=== PATIENT | female | born 1965 | race African-American/Black ===

== ENCOUNTER 2016-10-03 20:42 | Inpatient (IN) | payer MEDICAID ==
[~2016-10-03] VITALS: Ht 170.2 cm; Wt 49.0 kg
[~2016-10-03 20:42] MED LIST: ACET1TAB12 PO; ALBU6.7H IH; FLUT1DIS3 INH; LEVO500T15 PO; METH4TAB17 PO
[2016-10-03] MEDS ORDERED: PREDNISONE 20MG TABLET PO STA (22:35)
[2016-10-03] MEDS ORDERED: ALBUTEROL (0.083%) 2.5MG/3ML NEB HHN STA (22:35)
[2016-10-03] MEDS ORDERED: IPRATROPIUM BROMIDE (0.02%) 0.5MG/2.5ML NEB HHN STA (22:35)
[2016-10-03 23:14] LABS: BASOPHILS % 0.9 % (0.0-2.0); EOSINOPHILS % 5.7 % (0.0-5.0); HEMATOCRIT. 40.8 % (36.0-48.0); HEMOGLOBIN. 13.5 g/dL (12.0-16.0); LYMPHOCYTES % 31.6 % (20.0-50.0); MEAN CORPUSCULAR HEMOGLOBIN 26.2 pg (28.0-32.0); MEAN CORPUSCULAR VOLUME 79.2 fL (81.0-99.0); MEAN PLATELET VOLUME 8.3 fl (7.4-10.4); MONOCYTES % 9.1 % (2.0-8.0); NEUTROPHILS % 52.7 % (40.0-76.0); PLATELET 175 x1000/uL (130-400); RED BLOOD CELL COUNT 5.15 mill/uL (4.2-5.4); RED CELL DISTRIBUTION WIDTH 14.8 % (11.6-14.6)
[2016-10-03 23:27] LABS: CARBON DIOXIDE 30 mEq/L (21-32); CHLORIDE 105 mEq/L (98-107)
[2016-10-04] MEDS ORDERED: ACETAMINOPHEN WITH CODEINE 300/30MG TABLET PO ONE (01:15)
[2016-10-04] MEDS ORDERED: ALBUTEROL (0.5%) 2.5MG/0.5ML NEB HHN ONE (01:45)
[2016-10-04 02:55] LABS: *AMPHETAMINES SCREEN URINE NEGATIVE (NEGATIVE); *BARBITURATES SCREEN URINE NEGATIVE (NEGATIVE); *BENZODIAZEPINES SCREEN URINE NEGATIVE (NEGATIVE); *COCAINE SCREEN URINE PRESUMTIVE POSITIVE (NEGATIVE); CANNABINOID URINE SCREEN NEGATIVE (NEGATIVE); METHADONE URINE SCREEN NEGATIVE (NEGATIVE); OPIATES URINE SCREEN PRESUMTIVE POSITIVE (NEGATIVE); PHENCYCLIDINE URINE SCREEN NEGATIVE (NEGATIVE)
[2016-10-04] MEDS ORDERED: MORPHINE SULFATE 4 MG/ML CPJ (NOT FOR IM USE) IV PRN (12:00)
[2016-10-04] MEDS: IPRATROPIUM/ALBUTEROL 0.5-3(2.5)MG/3ML NEB HHN SCH ×3 (13:50→20:09)
[2016-10-04] MEDS ORDERED: DIPHENHYDRAMINE 50MG/ML VIAL IV PRN (14:45)
[2016-10-04] MEDS ORDERED: ACETAMINOPHEN 325MG TABLET PO PRN (14:45)
[2016-10-04] MEDS ORDERED: LORAZEPAM 0.5MG TABLET PO PRN (14:45)
[2016-10-04] MEDS ORDERED: IPRATROPIUM/ALBUTEROL 0.5-3(2.5)MG/3ML NEB INH PRN (14:45)
[2016-10-04] MEDS ORDERED: DOCUSATE SODIUM 100MG CAPSULE PO PRN (14:45)
[2016-10-04] MEDS ORDERED: ONDANSETRON HCL 4MG/2ML VIAL IV PRN (14:45)
[2016-10-04] MEDS: ENOXAPARIN 40MG/0.4ML SYR SUBCUT SCH (15:56)
[2016-10-04] MEDS ORDERED: LEVOFLOXACIN 500MG PREMIX 100 ML IV NR (16:00)
[2016-10-04] MEDS: METHYLPREDNISOLONE SOD SUCC 40 MG/ML VIAL IV SCH ×2 (16:00→21:53)
[2016-10-04 16:50] VITALS: BP 103/76
[2016-10-04 20:00] VITALS: BP 116/72
[2016-10-04 22:00] VITALS: BP 101/71
[2016-10-04] MEDS: SODIUM CHLORIDE 0.9% INJ 3ML FLUSH IVF SCH (22:02)
[2016-10-05] VITALS (12 sets, daily range): BP systolic 95–129; BP diastolic 45–90
[2016-10-05] MEDS: IPRATROPIUM/ALBUTEROL 0.5-3(2.5)MG/3ML NEB HHN SCH ×6 (00:25→20:15)
[2016-10-05] MEDS: SODIUM CHLORIDE 0.9% INJ 3ML FLUSH IVF SCH ×3 (05:56→21:41)
[2016-10-05] MEDS: METHYLPREDNISOLONE SOD SUCC 40 MG/ML VIAL IV SCH ×3 (06:27→21:41)
[2016-10-05] MEDS: GUAIFENESIN/CODEINE 200-20MG/10ML UDC PO PRN ×2 (07:47→19:19)
[2016-10-05] MEDS: GUAIFENESIN 200MG/10ML SUGAR FREE UDC PO PRN (10:26)
[2016-10-05] MEDS: LEVOFLOXACIN 500MG PREMIX 100 ML IV SCH (16:17)
[2016-10-05] MEDS: ENOXAPARIN 40MG/0.4ML SYR SUBCUT SCH (17:12)
[2016-10-06] VITALS (9 sets, daily range): BP systolic 94–118; BP diastolic 28–80
[2016-10-06] MEDS: IPRATROPIUM/ALBUTEROL 0.5-3(2.5)MG/3ML NEB HHN SCH ×5 (00:15→16:24)
[2016-10-06] MEDS: METHYLPREDNISOLONE SOD SUCC 40 MG/ML VIAL IV SCH (05:48)
[2016-10-06] MEDS: SODIUM CHLORIDE 0.9% INJ 3ML FLUSH IVF SCH (05:48)
[2016-10-06] MEDS: GUAIFENESIN 200MG/10ML SUGAR FREE UDC PO PRN (05:58)
[2016-10-06] MEDS: GUAIFENESIN/CODEINE 200-20MG/10ML UDC PO PRN (09:16)
[2016-10-06] MEDS: LEVOFLOXACIN 500MG PREMIX 100 ML IV SCH (15:00)
[2016-10-06] MEDS ORDERED: METHYLPREDNISOLONE SOD SUCC 40 MG/ML VIAL IV SCH (21:00)
== END 2016-10-06 17:10 | disposition home or self-care (01) | DRG 140 ==
LOC: ER 21:17 → 3WST 10-04 11:43 → ENRESERV 10-04 15:51
PROVIDERS: ADMIT Internal Medicine; ATTEND Internal Medicine
DX: J44.1 Chronic obstructive pulmonary disease with (acute) exacerbation (principal); J96.00 Acute respiratory failure, unspecified whether with hypoxia or hypercapnia; E44.1 Mild protein-calorie malnutrition; F17.210 Nicotine dependence, cigarettes, uncomplicated; F14.10 Cocaine abuse, uncomplicated; Z68.1 Body mass index [BMI] 19.9 or less, adult; Z79.2 Long term (current) use of antibiotics; Z79.899 Other long term (current) drug therapy; Z82.49 Family history of ischemic heart disease and other diseases of the circulatory system
CPT/HCPCS: 36415; 71010; 80053; 80305; 85025; 93005; 94640; 94664; 96365; 96372; 96375; 99285; 99406; J1650; J1956; J2270; J2405; J2920; J7040; J7512; J7611; J7620

== ENCOUNTER 2017-01-20 14:16 | Emergency (ER) | payer MEDICAID, OTHER ==
[~2017-01-20] VITALS: Ht 170.2 cm; Wt 50.0 kg
[~2017-01-20 14:16] MED LIST changes: -ACET1TAB12 PO; -LEVO500T15 PO; +LEVO500T2 PO
[2017-01-20] MEDS ORDERED: KETOROLAC 60MG/2ML VIAL IM ONE (16:45)
[2017-01-20 17:07] LABS: BASOPHILS % 1.4 % (0.0-2.0); EOSINOPHILS % 3.5 % (0.0-5.0); HEMATOCRIT. 37.8 % (36.0-48.0); HEMOGLOBIN. 12.6 g/dL (12.0-16.0); LYMPHOCYTES % 26.5 % (20.0-50.0); MEAN CORPUSCULAR VOLUME 80.7 fL (81.0-99.0); MEAN PLATELET VOLUME 8.4 fl (7.4-10.4); MONOCYTES % 10.1 % (2.0-8.0); NEUTROPHILS % 58.5 % (40.0-76.0); PLATELET 179 x1000/uL (130-400); RED BLOOD CELL COUNT 4.68 mill/uL (4.2-5.4); RED CELL DISTRIBUTION WIDTH 14.6 % (11.6-14.6)
[2017-01-20 17:13] LABS: CHLORIDE 110 mEq/L (98-107)
[2017-01-20 17:19] LABS: CARBON DIOXIDE 25 mEq/L (21-32)
[2017-01-20 17:43] LABS: *AMPHETAMINES SCREEN URINE NEGATIVE (NEGATIVE); *BARBITURATES SCREEN URINE NEGATIVE (NEGATIVE); *BENZODIAZEPINES SCREEN URINE NEGATIVE (NEGATIVE); *COCAINE SCREEN URINE PRESUMTIVE POSITIVE (NEGATIVE); CANNABINOID URINE SCREEN NEGATIVE (NEGATIVE); METHADONE URINE SCREEN NEGATIVE (NEGATIVE); OPIATES URINE SCREEN NEGATIVE (NEGATIVE); PHENCYCLIDINE URINE SCREEN NEGATIVE (NEGATIVE)
[2017-01-20] MEDS ORDERED: MORPHINE SULFATE 10 MG/ML CPJ IV ONE (17:45)
[2017-01-20] MEDS ORDERED: PIPERACILLIN/TAZ 3.375G PREMIX 50 ML IV ONE (17:45)
[2017-01-20] MEDS ORDERED: MORPHINE SULFATE 10 MG/ML CPJ IV NR (21:14)
[2017-01-20] MEDS: VANCOMYCIN 1 G PREMIX 200 ML IV SCH (22:00)
[2017-01-20] MEDS ORDERED: DIPHENHYDRAMINE 50MG/ML VIAL IV ONE (22:30)
[2017-01-21] MEDS ORDERED: PIPERACILLIN/TAZ 3.375G PREMIX 50 ML IV ONE (02:00)
[2017-01-21 12:50] VITALS: BP 102/68
== END 2017-01-21 14:55 | disposition short-term general hospital (02) ==
LOC: ER 15:23
DX: L03.113 Cellulitis of right upper limb (principal); J44.9 Chronic obstructive pulmonary disease, unspecified; F17.200 Nicotine dependence, unspecified, uncomplicated; F14.10 Cocaine abuse, uncomplicated
CPT/HCPCS: 36415; 71010; 73130; 80048; 80305; 85025; 96365; 96366; 96367; 96372; 96375; 99285; J1200; J1885; J2270; J2543; J3370; Z7610

== ENCOUNTER 2017-03-06 23:52 | Emergency (ER) | payer SELFPAY ==
[~2017-03-06] VITALS: Ht 165.1 cm; Wt 54.0 kg
[2017-03-07] MEDS ORDERED: METHYLPREDNISOLONE SOD SUCC 125 MG/2 ML VIAL IV STA (00:23)
[2017-03-07] MEDS ORDERED: ALBUTEROL (0.083%) 2.5MG/3ML NEB HHN STA (00:23)
[2017-03-07] MEDS ORDERED: IPRATROPIUM BROMIDE (0.02%) 0.5MG/2.5ML NEB HHN STA (00:23)
[2017-03-07 06:00] VITALS: BP 110/76
== END 2017-03-07 06:10 | disposition home or self-care (01) ==
LOC: ER 23:52 → CANBEDREQ 03-07 07:02
DX: J44.1 Chronic obstructive pulmonary disease with (acute) exacerbation (principal); F17.210 Nicotine dependence, cigarettes, uncomplicated; F12.10 Cannabis abuse, uncomplicated; Z71.6 Tobacco abuse counseling
CPT/HCPCS: 71010; 94640; 96374; 99285; 99406; J2930; J7611; Z7610

== ENCOUNTER 2018-09-08 22:08 | Emergency (ER) | payer MEDICAID ==
[~2018-09-08] VITALS: Ht 167.6 cm; Wt 52.0 kg
[~2018-09-08 22:08] MED LIST changes: -FLUT1DIS3 INH; -LEVO500T2 PO; -METH4TAB17 PO
[2018-09-08] MEDS ORDERED: METHYLPREDNISOLONE SOD SUCC 125 MG/2 ML VIAL IV STA (22:56)
[2018-09-08] MEDS ORDERED: MAGNESIUM 2 G PREMIX 50 ML IV STA (22:56)
[2018-09-08] MEDS ORDERED: ALBUTEROL (0.083%) 2.5MG/3ML NEB HHN STA (22:56)
[2018-09-08] MEDS ORDERED: IPRATROPIUM BROMIDE (0.02%) 0.5MG/2.5ML NEB HHN STA (22:56)
[2018-09-09] MEDS ORDERED: ALBUTEROL (0.083%) 2.5MG/3ML NEB HHN STA (02:09)
[2018-09-09] MEDS ORDERED: IPRATROPIUM BROMIDE (0.02%) 0.5MG/2.5ML NEB HHN STA (02:09)
[2018-09-09 04:36] VITALS: BP 99/58
== END 2018-09-09 04:38 | disposition home or self-care (01) ==
LOC: ER 22:08
DX: J45.901 Unspecified asthma with (acute) exacerbation (principal); J44.9 Chronic obstructive pulmonary disease, unspecified; F17.200 Nicotine dependence, unspecified, uncomplicated
CPT/HCPCS: 71045; 94640; 94644; 96365; 96366; 96375; 99285; J2930; J3475; J7611; Z7610

== ENCOUNTER 2019-05-05 11:44 | Emergency (ER) | payer MEDICAID ==
[~2019-05-05] VITALS: Ht 162.6 cm; Wt 64.0 kg
[~2019-05-05 11:44] MED LIST changes: -ALBU6.7H IH; +ALBU6.7H11 IH; +AMLO10TA80 MT; +PRED10TA MT
[2019-05-05] MEDS ORDERED: PREDNISONE 20MG TABLET PO STA (12:30)
[2019-05-05] MEDS ORDERED: IPRATROPIUM BROMIDE (0.02%) 0.5MG/2.5ML NEB HHN STA (12:30)
[2019-05-05] MEDS ORDERED: ALBUTEROL (0.083%) 2.5MG/3ML NEB HHN STA (12:30)
[2019-05-05] MEDS ORDERED: MAGNESIUM 2 G PREMIX 50 ML IV ONE (12:30)
[2019-05-05 12:59] LABS: BASOPHILS % 1.1 % (0.0-2.0); EOSINOPHILS % 4.5 % (0.0-5.0); HEMATOCRIT. 39.3 % (36.0-48.0); HEMOGLOBIN. 12.7 g/dL (12.0-16.0); LYMPHOCYTES % 24.4 % (20.0-50.0); MEAN CORPUSCULAR HEMOGLOBIN 25.7 pg (28.0-32.0); MEAN CORPUSCULAR VOLUME 79.7 fL (81.0-99.0); MEAN PLATELET VOLUME 9.1 fl (7.4-10.4); MONOCYTES % 10.3 % (2.0-8.0); NEUTROPHILS % 59.7 % (40.0-76.0); PLATELET 151 x1000/uL (130-400); RED BLOOD CELL COUNT 4.93 mill/uL (4.2-5.4); RED CELL DISTRIBUTION WIDTH 14.4 % (11.6-14.6)
[2019-05-05 13:05] LABS: CHLORIDE 110 mEq/L (98-107)
[2019-05-05 14:43] VITALS: BP 103/57
== END 2019-05-05 15:22 | disposition home or self-care (01) ==
LOC: ER 12:05
DX: J44.1 Chronic obstructive pulmonary disease with (acute) exacerbation (principal); F14.10 Cocaine abuse, uncomplicated; Z79.899 Other long term (current) drug therapy
CPT/HCPCS: 36415; 71045; 80053; 85025; 87804; 93005; 94640; 96365; 99284; J3475; J7512; J7611; Z7610

== ENCOUNTER 2020-01-15 23:34 | Emergency (ER) | payer MEDICAID ==
[~2020-01-15] VITALS: Ht 165.1 cm; Wt 63.0 kg
[2020-01-16] MEDS ORDERED: PREDNISONE 20MG TABLET PO ONE (00:45)
[2020-01-16] MEDS ORDERED: ALBUTEROL (0.083%) 2.5MG/3ML NEB HHN ONE (00:45)
[2020-01-16] MEDS ORDERED: ONDANSETRON 4MG ODT PO ONE (01:45)
[2020-01-16 04:25] VITALS: BP 131/80
== END 2020-01-16 04:26 | disposition home or self-care (01) ==
LOC: ER 23:34 → EDBD 23:34 → ER 01-16 04:26
DX: J44.1 Chronic obstructive pulmonary disease with (acute) exacerbation (principal); I10 Essential (primary) hypertension
CPT/HCPCS: 71045; 93005; 94640; 99283; J7512; Z7610